=== PATIENT | female | born 2000 | race Caucasian/White ===

== ENCOUNTER 2022-05-29 14:49 | Outpatient (CLI) | payer BC, OTHER, SELFPAY ==
--- NOTE | 2022-05-29 15:10 | ECG_ITS ---
Measurements Intervals [place] Rate: 77 P: 61 OR: 124 QRS: 80 QRSD: 86 T: 49 QT: 382 QTc: 434 Interpretive Statements SINUS RHYTHM WITH FREQUENT VENTRICULAR PREMATURE COMPLEXES POSSIBLE LEFT ATRIAL ENLARGEMENT BORDERLINE ECG NO PREVIOUS ECG AVAILABLE FOR COMPARISON Electronically Signed On 05-29-2022 16:15:59 CDT by Art Steve M.D.
== END 2022-05-29 14:50 | disposition home or self-care (01) ==
LOC: ANHIMG 14:51 → ANHCARD 15:01
PROVIDERS: PCP Family Medicine; Visit Provider Physician Assistant Medical
DX: R42 Dizziness and giddiness (principal); R94.31 Abnormal electrocardiogram [ECG] [EKG]
CPT/HCPCS: 93005

== ENCOUNTER 2024-03-13 10:53 | Outpatient (CLI) | payer BC, SELFPAY ==
--- NOTE | ~2024-03-13 | US_ITS ---
EXAMINATION: US pelvic complete DATE: 03/13/2024 11:11 INDICATION: Painful menstruation Comparison:No prior studies for comparison. TECHNIQUE: Multiple transabdominal and endovaginal sonographic images of the pelvis performed. FINDINGS: The uterus measures 2.8 x 2.2 x 2.3 cm. The endometrial complex measures 9 mm. The right ovary measures 2.8 x 2.2 x 2.3 cm and the left ovary measures 3.5 x 2.5 x 2.4 cm. There ar e small follicles in each ovary. Normal doppler signal in both ovaries. There is no free fluid in the pelvis. There are no abnormal masses seen on either side. IMPRESSION: 1. Unremarkable pelvic ultrasound. Reviewed, dictated and finalized at location B.
== END 2024-03-13 10:54 ==
LOC: MICIMG 10:54
PROVIDERS: PCP Family Medicine; Visit Provider Nurse Practitioner Women's Health
DX: R10.2 Pelvic and perineal pain (principal)
CPT/HCPCS: 76856

== ENCOUNTER 2024-10-28 08:34 | Outpatient (CLI) | payer BC, SELFPAY ==
[2024-10-28 09:25] LABS: Influenza A QL RT-PCR Negative (Negative); Influenza B QL RT-PCR Negative (Negative); RSV RNA, RT-PCR Negative (Negative); SARS-CoV-2 RNA PCR Negative (Negative)
== END 2024-10-28 08:35 | disposition home or self-care (01) ==
PROVIDERS: PCP Family Medicine; Visit Provider Student in an Organized Health Care Education/Training Program
DX: R09.89 Other specified symptoms and signs involving the circulatory and respiratory systems (principal); Z20.822 Contact with and (suspected) exposure to COVID-19
CPT/HCPCS: 87637

== ENCOUNTER 2025-08-12 15:41 | Outpatient (CLI) | payer BC, OTHER, SELFPAY ==
--- NOTE | ~2025-08-12 | US_ITS ---
EXAM/PROCEDURE: US soft tissue head and neck HISTORY: tenderness, pain in chin COMPARISON: None available. TECHNIQUE: Direct examination using a linear array transducer by natural remedy consultant performed in the right-sided chin region. FINDINGS: No discrete lesion or abnormality identified. No drainable fluid collection or obvious mass. IMPRESSION: No discrete abnormality identified. If abscess or mass is a clinical concern, correlation with contrast-enhanced soft tissue CT examination of the neck or facial region may provide additional beneficial information. Reviewed, dictated and finalized at location A. STICKER IMPRESSION: No discrete abnormality identified. If abscess or mass is a clinical concern, c orrelation with contrast-enhanced soft tissue CT examination of the neck or fac ial region may provide additional beneficial information.
== END 2025-08-12 15:42 | disposition home or self-care (01) ==
LOC: MICIMG 15:41
PROVIDERS: PCP Family Medicine; Visit Provider Student in an Organized Health Care Education/Training Program
DX: R68.84 Jaw pain (principal)
CPT/HCPCS: 76536